=== PATIENT | female | born 1985 | race Caucasian/White ===

== ENCOUNTER 2018-07-09 19:57 | Inpatient (IN) | payer BC ==
[2018-07-09 20:11] VITALS: BMI 25.0
[2018-07-09] MEDS ORDERED: Lactated Ringer's 1,000 ML IV ONE ×2 (20:11→20:12)
--- NOTE | 2018-07-09 21:14 | OBADHP ---
Datetime: 07/09/2018 20:05 Admit Comment, IP Provider: Pt is a 32 yo 40.1 wks gest YULISA 07/08/18 based on LMP of 6-14-18 and 7.3 week U/S done 11/22/17. Pt is here for an induction. Reports intermittent contractions. Denies vag inal bleeding or LOF. Reports good movements. Denies fevers, chills, headaches, blurry vision, chest pain, dyspnea, N/V/D/C or dysuria. ROS: Negative except for stated above in HPI. PNP: Dr. 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 Gamble for TORCH precautions, pt denies active lesio ns now, B 12 def Meds: Valtrex 500mg 1tab BID, B12 once a week, PNV Allergies:NKDA OB: Quad- 01/27/18 screen positive for down- did not go through with amniocentesis due to low risk , no abortions or miscarraiges, pap negative 01/31/18 PSH: L knee 2008 FH: HLD- Mom Social: Denies tobacco, EtOH or drug use Labs: Rubella- Immune, GC/CHL neg, AB +, AB neg, VDRL-NR, HepBsag neg, HIV neg, GBS neg, flu shot 4 months ago PE: GEN:NAD HEENT: NCAT, EOMI Heart: +S1S2, RRR Lungs: CTA, no wheezing, rales or rhonchi Abdomen: Soft, non-tender, gravid. +BS heard throughout Exrem: no edema Assessment: 32 yo 40.1 wks gest YULISA 07/08/18 based on LMP of 6-14-18 and 7.3 week U/S done 11/22. Pt is here for an induction. Plan: -Admit to L _ D -Initiate Labor induction protocol -Maternal montioring VS - monitoring -Cervidil -IVF's, Pitocin Discussed with Dr. Genoveva Estevez , PGY-[address] Tomas: I have evaluated the patient independently and I agree with the above Extremities - PN: Normal Abdomen - PN: Normal Lungs - PN: Normal Heart - PN: Normal Neurologic - PN: Normal HEENT - PN: Normal General - PN: Normal Comments, ACOG Physical Exam: GEN:NAD HEENT: NCAT, EOMI Heart: +S1S2, RRR Lungs: CTA, no wheezing, rales or rhonchi Abdomen: Soft, non-tender, gravid. +BS heard throughout Exrem: no edema IP Hx Assessment: The History has been Reviewed and is Current Vital Signs Provider: Reviewed IP Chief Complaint: Scheduled induction of labor IP Adm Impression: Term, intrauterine IP Admit Plan: Admit to unit; Initiate labor induction protocol
[2018-07-09 21:17] LABS: BASO % 0.4 % (0.0-2.0); EOS # 0.1 K/uL (0.0-0.7); EOS % 0.9 % (0.0-4.0); HEMOGLOBIN 12.3 g/dL (12.0-16.0); LYMPH # 1.5 K/uL (1.0-4.3); LYMPH % 19.2 % (20.0-40.0); MEAN CELL VOLUME 90.6 fl (81.0-99.0); MEAN CORPUSCULAR HEMOGLOBIN 30.6 pg (27.0-31.0); MEAN CORPUSCULAR HGB CONC 33.8 g/dL (33.0-37.0); MEAN PLATELET VOLUME 10.9 fl (7.2-11.7); MONO # 0.7 K/uL (0.0-0.8); NEUT # 5.4 K/uL (1.8-7.0); NEUT % 70.5 % (50.0-75.0); NRBC % 0.2 % (0.0-0.0); RBC 4.02 Mil/uL (3.80-5.20); RED CELL DISTRIBUTION WIDTH 15.7 % (11.5-14.5); WHITE BLOOD COUNT 7.6 K/uL (4.8-10.8)
[2018-07-09] MEDS ORDERED: Nalbuphine HCL 10 mg/ml Ampule IVP PRN (22:14)
[2018-07-10 01:00] VITALS: TEMP 98.3; O2SAT 100
[2018-07-10] MEDS ORDERED: Nalbuphine HCL 10 mg/ml Ampule IVP PRN ×3 (03:30→09:00)
[2018-07-10] MEDS ORDERED: Nalbuphine HCL 10 mg/ml Ampule ONE ×2 (03:34→12:54)
--- NOTE | 2018-07-10 08:24 | OBPN ---
Datetime: 07/10/2018 08:15 IP Progress Impression: Reassuring heart rate IP Progress Plan: Continue present management; Cervical Ripening Contraction Comments Provider: + FHR - Baseline A Provider: 120 IP Progress Note Comment: OB Hospitalist on-call. She was admitted 40+w/post date preg x HSV IgM + non specific lab result/followed with MFM; HSV IgG negaitve : she has no lesions/ no vaginal symtpoms . She feels CTX more intense. She had SROM last night 3am and also given Nubain for pain relief. Ce rvidil in place A: IUP at 40w painful CTX PLAN: Pain managment disucssed. Nitrous/Nubain and epidural offered. MARIO STOCKTON Accel Fetus A IP Provider: [id number] FHR Category Provider Fetus A: Category I NICHD Variability Prov Fetus A: Moderate 6-25bpm Datetime: 07/09/2018 20:05 Vital Signs Provider: Reviewed
[2018-07-10] MEDS ORDERED: Lidocaine 1% Inj (20ml) ONE (09:57)
[2018-07-10] MEDS ORDERED: Lactated Ringer's 1,000 ML IV SCH (10:00)
--- NOTE | 2018-07-10 10:09 | OBPN ---
Datetime: 07/10/2018 10:00 IP Progress Plan: Continue present management; Anticipate Vaginal Delivery Contraction Comments Provider: 2-3m FHR - Baseline A Provider: 120 Presentation-Admit: Vertex IP Progress Note Comment: She feels better after epidural A: active phase of labor PLAN: re-check in 1h FHR Category Provider Fetus A: Category I NICHD Variability Prov Fetus A: Moderate 6-25bpm Dilatation, Provider: 9 Effacement, Provider: 100 Station, Provider: 0 NICHD Decel Fetus A IP Provider: None Datetime: 07/10/2018 09:00 IP Progress Impression: Normal progression of labor; Reassuring heart rate
[2018-07-10] MEDS ORDERED: Oxytocin 30 UNIT in NS 500 ml 30 UNITS/500 ML BAG IV ONE ×2 (11:17→11:18)
[2018-07-10] MEDS ORDERED: OXYTOCIN/0.9 % NS 20 UNIT/1,000 ML BAG IV SCH ×2 (11:30→16:56)
[2018-07-10] MEDS ORDERED: Benzocaine/Menthol SPRAY TOP PRN ×2 (13:21→16:56)
[2018-07-10] MEDS ORDERED: Oxycodone/Acetaminophen 5/325 mg Tab PO PRN ×3 (13:21→16:56)
--- NOTE | 2018-07-10 16:38 | OBDS ---
DELIVERY PERSONNEL Delivery Doctor: Iveth Disla DO Clinical Material Handler: Carlos Bah Anesthesiologist: Trena Rae MD/Dr Herrera MATERNAL INFORMATION Delivery Anesthesia: Local; Spinal Medications in Delivery: Pitocin,Nubain Estimated Blood Loss (ml): 200 Placenta Cultured: Yes Maternal Complications: None Provider Comments: Over intact perineum, of live female . Infant was crying spontaneousl y an placed on mother's chest for [id number]. Stem cell/cord blood/tissue obtained. Placenta was delivered intact spontaneously. For pain, she was given Lidocaine 10cc, Nubain 20mg IVP one does and then anesthesia called and given medicaton via epdural catheter. EBL 200cc LABOR SUMMARY EDC: 07/08/2018 00:00 No. Babies in Womb: 1 LABOR INFORMATION Reason for Induction: Postterm Onset of Labor: 07/10/2018 03:00 Complete Dilatation: 07/10/2018 11:45 Cervical Ripening Agents: Cervidil Oxytocin: Augmentation Group B Beta Strep: Negative MEMBRANES Membranes Rupture Method: Spontaneous Rupture of Membranes: 07/10/2018 03:06 Length of Rupture (hrs): 9.37 Amniotic Fluid Color: Clear Amniotic Fluid Amount: Moderate Amniotic Fluid Odor: Normal STAGES OF LABOR Stage 1 hrs: 8 Stage 1 min: 45 Stage 2 hrs: 0 Stage 2 min: 43 Stage 3 hrs: -167 Stage 3 min: -43 Total Time in Labor hrs: -158 Total Time in Labor min: -15 VAGINAL DELIVERY Episiotomy: None Laceration Extension: Second Degree Laceration Type: Perineal Laceration Repair: Yes Laceration Repair Note: Secodn degree laceration was irregular right side more then the left. 2.0 a nd 3.0 Vicryl Rapide sutures were used to repair laceration. Initial Vag Sponge Count: 10 Final Vag Sponge Count: 10 Initial Vag Sharps Count: 5 Final Vag Sharps Count: 5 Sponge Count Correct: Yes Sharps Count Correct: Yes Count Comment: 10 Lap pads 5 suture needles one syringe 3 syringe needles BABY A INFORMATION Delivery Date/Time: 07/10/2018 12:28 Method of Delivery: Vaginal : N/A Forceps: N/A Vacuum Extraction: N/A Shoulder Dystocia : No SHOULDER DYSTOCIA BABY A Delivery Date/Time: 07/10/2018 12:28 PRESENTATION/POSITION BABY A Presentation: Cephalic PLACENTA INFORMATION BABY A Placenta Delivery Time : 07/03/2018 12:45 Placenta Method of Delivery: Spontaneous Placenta Status: Delivered SCORES BABY A Heart Rate 1 min: >100 bpm Resp Effort 1 min: Good Cry Reflex Irritability 1 min: Cough or Sneeze or Pulls Away Muscle Tone 1 min: Active Motion Color 1 min: Body [place], Extremities Blue SCORE 1 MIN: 9 Heart Rate 5 min: >100 bpm Resp Effort 5 min: Good Cry Reflex Irritability 5 min: Cough or Sneeze or Pulls Away Muscle Tone 5 min: Active Motion Color 5 min: Body [place], Extremities Blue SCORE 5 MIN: 9 INFORMATION BABY A Gestational Age at Delivery: 40.0 Gestational Status: Term Infant Outcome : Liveborn Condition : Stable Infant Sex: Female IDENTIFICATION/MEDS BABY A ID Band Number: [id number] ID Band Location: Left Leg; Left Arm WEIGHT/LENGTH BABY A Infant Birthweight (gms): 2990 Infant Weight (lb): 6 Weight (oz): 9 Infant Length Inches: 19.97 Length cms: 50.7 CORD INFORMATION BABY A No. 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
[2018-07-11 06:33] LABS: MEAN CELL VOLUME 91.3 fl (81.0-99.0); MEAN CORPUSCULAR HEMOGLOBIN 30.6 pg (27.0-31.0); MEAN CORPUSCULAR HGB CONC 33.5 g/dL (33.0-37.0); RBC 3.03 Mil/uL (3.80-5.20); RED CELL DISTRIBUTION WIDTH 15.8 % (11.5-14.5); WHITE BLOOD COUNT 10.8 K/uL (4.8-10.8)
[2018-07-11 06:39] LABS: HEMOGLOBIN 9.3 g/dL (12.0-16.0)
--- NOTE | 2018-07-11 09:41 | OBPPN ---
Datetime: 07/11/2018 09:22 PP Pain Prov: Within normal limits PP Nausea Prov: Denies PP Flatus Prov: Yes PP Breasts Prov: Not Done PP Heart Prov: Normal PP Lungs Prov: Normal PP Abdomen/Uterus Prov: Normal PP Lochia Prov: Not Done PP Vulva/Perineum Prov: Not Done PP CVA Tenderness Prov: Normal PP Extremities Prov: Normal PP Impression Prov: Normal progression PP Plan Prov: Continue present management PP Progress Note Prov: Patient doing well ambulating tolerating diet Vital signs stable afebrile Uterus firm below the umbilicus Extremities no Homans day #1 Ambulate, regular diet, anticipate discharge in a.m. Vital Signs Provider PP: Reviewed
[2018-07-11] MEDS: Oxycodone/Acetaminophen 5/325 mg Tab PO PRN (18:30)
[2018-07-12] MEDS: Oxycodone/Acetaminophen 5/325 mg Tab PO PRN (06:22)
--- NOTE | 2018-07-12 10:39 | OBPPN ---
Datetime: 07/12/2018 10:34 PP Pain Prov: Within normal limits PP Nausea Prov: Denies PP Flatus Prov: Yes PP BM Prov: Yes PP Breasts Prov: Normal PP Heart Prov: Normal PP Lungs Prov: Normal PP Abdomen/Uterus Prov: Normal PP Lochia Prov: Normal PP Vulva/Perineum Prov: Normal PP CVA Tenderness Prov: Normal PP Extremities Prov: Normal PP Comments Phys Exam Prov: Abdomen soft, nontender, nondistended Uterus firm, below umbilicus No deep calf tenderness bilaterally PP Impression Prov: Normal progression PP Plan Prov: Continue present management; Discharge PP Progress Note Prov: day #2 status post , patient recovering well Discharge patient home today with instructions and precautions Patient will follow-up in office in 6 weeks for visit Discussed plan with patient and all patient questions answered. IP PP Procedures: None Vital Signs Provider PP: Reviewed; Within Normal Limits
--- NOTE | 2018-07-12 10:39 | OBDCSUM ---
Datetime: 07/12/2018 10:35 Discharged to, Provider: Home Follow up at, Provider: office Disch Instr Activity: Normal activity Disch Instr Diet: Regular Discharge Instructions, Provider: Routine instructions given Discharge Diagnosis, Provider: Term Delivered Discharge Time: 07/12/2018 10:35 Follow up in weeks, Provider: 6 weeks Disch Referrals: None Contraception discussed, Prov: Yes Contraception after Delivery: Undecided
[2018-07-12 15:19] VITALS: BP 114/74; PULSE 79; RESP 20
== END 2018-07-12 14:00 | disposition home or self-care (01) | DRG 807 ==
LOC: H.L&D 21:20 → H.OB/GYN 07-10 16:35
PROVIDERS: ADMIT Obstetrics & Gynecology; ATTEND Obstetrics & Gynecology
PROC: 4A1HXCZ Monitoring of Products of Conception, Cardiac Rate, External Approach (ICD-10-PCS; 2018-07-09)
PROC: 10E0XZZ Delivery of Products of Conception, External Approach (ICD-10-PCS; principal; 2018-07-10)
PROC: 0KQM0ZZ Repair Perineum Muscle, Open Approach (ICD-10-PCS; 2018-07-10)
DX: O48.0 Post-term pregnancy (principal); Z37.0 Single live birth; O70.1 Second degree perineal laceration during delivery; Z3A.40 40 weeks gestation of pregnancy